=== PATIENT | female | born 1970 | race American Indian/Alaskan Native ===

== ENCOUNTER 2017-12-06 15:38 | Emergency (ER) | payer MEDICAID, OTHER ==
[2017-12-06 15:39] VITALS: BMI 48.1
[2017-12-06] MEDS ORDERED: Metoprolol Succinate 50 mg XL Tab PO STA (17:29)
--- NOTE | 2017-12-06 18:01 | ED PDOC ---
Arrival/HPI - General Chief Complaint: High Blood Pressure Time Seen by Provider: 12/06/17 16:42 Historian: Patient EM Caveat: Acuity of Condition - History of Present Illness Narrative History of Present Illness (Text): 12/06/17 17:57 Pt is a 47 yr old female with PMH of hypertension and DMII who had a random BP check done today and was told to go to the ER right away. Pt states that she does not have any complaints except some mild pressure behind her eyes. Denies chest pain shortness of breath, neck or back pain, fever, chills, nausea, vomiting, or diarrhea. Pt reports that she doesn't have a PMD and has her medications managed by this Emergency department and others. Time/Duration: < week (3 days) Symptom Onset: Sudden, Gradual Symptom Course: Unchanged Quality: Unable to Describe Severity Level: 1 Activities at Onset: Rest Context: Home Past Medical History - Provider Review Nursing Documentation Reviewed: Yes - Travel History Have you recently traveled outside [place] w/in the past 3 mons?: No - Infectious Disease Hx of Infectious Diseases: None - Tetanus Immunization Tetanus Immunization: Unknown - Cardiac Hx Cardiac Disorders: Yes Hx Hypertension: Yes Other/Comment: MIGRAINES. DIABETIC - Pulmonary Hx Respiratory Disorders: Yes (SMOKES CIGARETTES) - Neurological Hx Neurological Disorder: Yes Hx Migraine: Yes - HEENT Hx HEENT Disorder: Yes Hx Epistaxis: Yes - Renal Hx Renal Disorder: No - Endocrine/Metabolic Hx Endocrine Disorders: Yes Hx Diabetes Mellitus Type 2: Yes - Hematological/Oncological Hx Blood Disorders: No - Integumentary Hx Dermatological Disorder: Yes (LEFT FOOT LACERATION FROM FALL) - Musculoskeletal/Rheumatological Hx Musculoskeletal Disorders: No - Gastrointestinal Hx Gastrointestinal Disorders: Yes Hx Gall Bladder Disease: Yes (CHOLECYSTECTOMY) - Genitourinary/Gynecological Hx Genitourinary Disorders: No - Psychiatric Hx Psychophysiologic Disorder: No Hx Substance Use: No - Surgical History Hx Section: Yes Hx Cholecystectomy: Yes - Anesthesia Hx Anesthesia: Yes Hx Anesthesia Reactions: No Hx Malignant Hyperthermia: No - Suicidal Assessment Feels Threatened In Home Enviroment: No Family/Social History - Physician Review Nursing Documentation Reviewed: Yes Family/Social History: No Known Family HX Smoking Status: Heavy Smoker > 10 Cigarettes Daily Hx Alcohol Use: No Hx Substance Use: No Hx Substance Use Treatment: No Allergies/Home Meds Allergies/Adverse Reactions: Allergies oxycodone Allergy (Verified 12/06/17 16:18) ANAPHYLAXIS Home Medications: Home Meds Medication Instructions Recorded Confirmed Metformin HCl 500 mg PO BID 09/09/15 12/06/17 Enalapril Maleate [Vasotec] 5 mg PO DAILY 12/06/17 12/06/17 Review of Systems - Review of Systems Systems not reviewed;Unavailable: Unstable Vital Signs Constitutional: Normal Eyes: Normal ENT: Normal Respiratory: Normal Cardiovascular: Normal Gastrointestinal: Normal Genitourinary Female: Normal Musculoskeletal: Normal Skin: Normal Neurological: Normal Endocrine: Normal Hemo/Lymphatic: Normal Psychiatric: Normal Physical Exam Vital Signs Reviewed: Yes Vital Signs Temp Pulse Resp BP Pulse Ox 12/06/17 22:16 98.2 F 89 17 178/114 H 100 12/06/17 21:30 203/101 H 12/06/17 19:35 89 18 204/104 H 100 12/06/17 18:00 78 18 210/104 H 99 12/06/17 16:20 98.6 F 105 H 16 220/122 H 96 Temperature: Afebrile Blood Pressure: Hypertensive Pulse: Tachycardic Respiratory Rate: Normal Appearance: Positive for: Well-Appearing, Non-Toxic, Comfortable Pain Distress: None Mental Status: Positive for: Alert and Oriented X 3 - Systems Exam Head: Present: Atraumatic, Normocephalic Pupils: Present: PERRL Extroacular Muscles: Present: EOMI Conjunctiva: Present: Normal Mouth: Present: Moist Mucous Membranes Neck: Present: Normal Range of Motion Respiratory/Chest: Present: Clear to Auscultation, Good Air Exchange. No: Respiratory Distress, Accessory Muscle Use Cardiovascular: Present: Regular Rate and Rhythm, Normal S1, S2. No: Murmurs Abdomen: No: Tenderness, Distention, Peritoneal Signs Back: Present: Normal Inspection Upper Extremity: Present: Normal Inspection. No: Cyanosis, Edema Lower Extremity: Present: Normal Inspection, NORMAL PULSES, Normal ROM, Swelling (mild bilateral). No: Edema, CALF TENDERNESS, Daren's Sign, Tenderness Neurological: Present: GCS=15, CN II-XII Intact, Speech Normal, Motor Func Grossly Intact, Normal Sensory Function, Normal Cerebellar Funct, Gait Normal Skin: Present: Warm, Dry, Normal Color. No: Rashes Lymphatic: No: Cervical Adenopathy, Axillary Adenopathy, Inguinal Adenopathy Psychiatric: Present: Alert, Oriented x 3, Normal Insight, Normal Concentration Medical Decision Making ED Course and Treatment: 12/06/17 17:59 Impression Pt is a 47 yr old female with PMH of hypertension and DMII who had a random BP check done today and was told to go to the ER right away. Tachycardic due to anxiety, mild LE edema as a baseline Plan Labs ecg BB to lower BP Progress note 12/06/17 18:46 pt's BP lowered and remains asymptomatic; hemodynamically stable 12/06/17 20:10 BP trending down from 220/110-->204/100-->178/100 Current medication, Enalapril and Norvasc optimized at 10mg PO daily and metoprolol 25 mg PO daily x 30 Strongly encouraged pt to follow up with [facility] to have BP monitored and medications checked; counseled on diet VSS and pt ambulated well out of the ED - Lab Interpretations Lab Results: 12/06/17 18:23 12/06/17 18:23 Lab Results 12/06/17 18:23: Sodium 141, Potassium 4.3, Chloride 105, Carbon Dioxide 26, Anion Gap 14, BUN 13, Creatinine 0.8, Est GFR ( Amer) > 60, Est GFR (Non- Af Amer) > 60, Random Glucose 160 H, Calcium 8.9, Total Bilirubin 0.2, AST 24, ALT 19, Alkaline Phosphatase 66, Lactate Dehydrogenase 603, Total Creatine Kinase 110, Troponin I < 0.01, Total Protein 7.1, Albumin 3.5, Globulin 3.6, Albumin/Globulin Ratio 1.0 L 12/06/17 18:23: WBC 7.6, RBC 4.52, Hgb 9.8 L, Hct 31.8 L, MCV 70.4 L, MCH 21.7 L , MCHC 30.8 L, RDW 18.8 H, Plt Count 278, MPV 9.5 - Medication Orders Current Medication Orders: Discontinued Medications Amlodipine Besylate (Norvasc) 10 mg PO STAT STA Stop: 12/06/17 21:14 Last Admin: 12/06/17 21:30 Dose: 10 mg MAR Blood Pressure Document 12/06/17 21:30 IT (Rec: 12/06/17 21:31 IT [id number]) Blood Pressure Blood Pressure (100/60-150/90) 203/101 Metoprolol Succinate (Toprol Xl) 50 mg PO STAT STA Stop: 12/06/17 17:30 Last Admin: 12/06/17 18:00 Dose: 50 mg Disposition/Present on Arrival - Present on Arrival Any Indicators Present on Arrival: Yes History of DVT/PE: No History of Uncontrolled Diabetes: No Urinary Catheter: No History of Decub. Ulcer: No History Surgical Site Infection Following: None - Disposition Have Diagnosis and Disposition been Completed?: Yes Diagnosis: Asymptomatic hypertensive urgency Disposition: HOME/ ROUTINE Disposition Time: 22:00 Patient Plan: Discharge Condition: STABLE Discharge Instructions (ExitCare): DASH Diet, High Blood Pressure (DC) Additional Instructions: Katerine, thank you for letting us take care of you today. Your provider was MARTIN Benitez. You were treated for Hypertension. The emergency medical care you received today was directed at your acute symptoms. If you were prescribed any medication, please fill it and take as directed. It may take several days for your symptoms to resolve. Return to the Emergency Department if your symptoms worsen, do not improve, or if you have any other problems. Please take medication as directed and follow up with one of the community clinics to have your conditions managed appropriately Please contact your doctor or call one of the physicians/clinics you have been referred to that are listed on the Patient Visit Information form that is included in your discharge packet. Bring any paperwork you were given at discharge with you along with any medications you are taking to your follow up visit. Our treatment cannot replace ongoing medical care by a primary care provider (PCP) outside of the emergency department. Thank you for allowing the [email or web address] team to be part of your care today. If you had a blood, urine, or wound culture: It will take several days for the results, if any change in treatment is needed we will contact you. I Prescriptions: amLODIPine [Norvasc] 10 mg PO DAILY 30 Days #30 tab Enalapril Maleate [Vasotec] 10 mg PO DAILY 30 Days #30 tab metFORMIN [glucOPHAGE] 500 mg PO BID 30 Days #60 tab Metoprolol Tartrate 25 mg PO DAILY 30 Days #1 tablet Referrals: PCP,NO [Primary Care Provider] - [place] up with primary [facility] [place] - Follow up with primary Forms: [employer] ([place])
[2017-12-06 18:30] LABS: HEMOGLOBIN 9.8 g/dL (12.0-16.0); MEAN CELL VOLUME 70.4 fl (80.0-105.0); MEAN CORPUSCULAR HEMOGLOBIN 21.7 pg (25.0-35.0); MEAN CORPUSCULAR HGB CONC 30.8 g/dl (31.0-37.0); MEAN PLATELET VOLUME 9.5 fl (7.0-11.0); RBC 4.52 10^6/uL (3.5-6.1); RED CELL DISTRIBUTION WIDTH 18.8 % (11.5-14.5); WHITE BLOOD COUNT 7.6 10^3/ul (4.5-11.0)
[2017-12-06 18:41] LABS: ALBUMIN 3.5 g/dL (3.0-4.8); ALT/SGPT 19 U/L (7-56); AST/SGOT 24 U/L (14-36); BLOOD UREA NITROGEN 13 mg/dL (7-21); CALCIUM 8.9 mg/dL (8.4-10.5); GFR NON-AFRICAN AMERICAN > 60
[2017-12-06 18:52] LABS: TROPONIN I < 0.01 ng/mL
[2017-12-06 19:36] VITALS: PULSE 89; O2SAT 100
[2017-12-06 22:17] VITALS: BP 178/114; RESP 17; TEMP 98.2
--- NOTE | 2017-12-07 22:00 | CARD ---
APPROVED REPORT EKG Measurement Heart [id number] MS [id number] [id number] <Conclusion> Normal sinus rhythm Moderate voltage criteria for LVH, may be normal variant Nonspecific ST and T wave abnormality Abnormal ECG
== END 2017-12-06 22:17 | disposition home or self-care (01) ==
LOC: ED 15:38
DX: I16.0 Hypertensive urgency (principal); E11.9 Type 2 diabetes mellitus without complications; F17.210 Nicotine dependence, cigarettes, uncomplicated

== ENCOUNTER 2018-08-25 15:21 | Inpatient (IN) | payer MEDICAID ==
[2018-08-25 15:56] VITALS: BMI 52.4
[2018-08-25 16:48] LABS: BASO # 0.02 K/mm3 (0.0-2.0); BASO % 0.3 % (0.0-3.0); EOS # 0.1 (0.0-0.7); EOS % 1.6 % (1.5-5.0); HEMOGLOBIN 8.5 g/dL (12.0-16.0); LYMPH # 0.9 (1.2-3.4); LYMPH % 12.7 % (22.0-35.0); MEAN CELL VOLUME 68.2 fl (80.0-105.0); MEAN CORPUSCULAR HEMOGLOBIN 19.3 pg (25.0-35.0); MEAN CORPUSCULAR HGB CONC 28.3 g/dl (31.0-37.0); MEAN PLATELET VOLUME 9.5 fl (7.0-11.0); MONO # 0.4 (0.1-0.6); MONO % 5.4 % (1.0-6.0); RBC 4.4 10^6/uL (3.5-6.1); WHITE BLOOD COUNT 7.4 10^3/uL (4.5-11.0)
[2018-08-25 17:23] LABS: INR 1.3; PARTIAL THROMBOPLASTIN TIME 27.8 Seconds (26.9-38.3); PROTHROMBIN TIME 14.4 SECONDS (9.4-12.5)
[2018-08-25] MEDS ORDERED: Sodium Chloride 0.9% 1,000 ML IV STA (17:33)
--- NOTE | 2018-08-25 17:46 | ED PDOC ---
Arrival/HPI - General Chief Complaint: Chest Pain Time Seen by Provider: 08/25/18 15:37 Historian: Patient - History of Present Illness Narrative History of Present Illness (Text): 08/25/18 17:42 48-year-old female with past medical history of diabetes and hypertension, reports 2 day history of intermittent chest tightness associated with generalized weakness, headache. patient reports that she ran out of her blood pressure medication 2 days ago and has not taken any blood pressure medication today. reports that the chest tightness is midsternal, (-) constant, (+) intermittent, (-) radiation. Otherwise reports (-) diaphoresis, (-) dyspnea, (-) pleuritic component, (-) ripping or tearing quality, (-) positional component, (-) exertional component, (-) dizziness, (-) syncope, (+) nausea, (-) vomiting, (-) abdominal pain, (-) back pain, (-) calf swelling/pain, (-) neuro deficits, (-) fever, (-) URI. Reports no prior stress test in the past, no similar symptoms in the past. PMD none Past Medical History - Infectious Disease Hx of Infectious Diseases: None - Tetanus Immunization Tetanus Immunization: Unknown - Reproductive Currently : No - Cardiac Hx Cardiac Disorders: Yes Hx Hypertension: Yes Other/Comment: MIGRAINES. DIABETIC - Pulmonary Hx Respiratory Disorders: Yes (SMOKES CIGARETTES) - Neurological Hx Neurological Disorder: Yes Hx Migraine: Yes - HEENT Hx HEENT Disorder: Yes Hx Epistaxis: Yes - Renal Hx Renal Disorder: No - Endocrine/Metabolic Hx Endocrine Disorders: Yes Hx Diabetes Mellitus Type 2: Yes - Hematological/Oncological Hx Blood Disorders: No - Integumentary Hx Dermatological Disorder: Yes (LEFT FOOT LACERATION FROM FALL) - Musculoskeletal/Rheumatological Hx Musculoskeletal Disorders: No - Gastrointestinal Hx Gastrointestinal Disorders: Yes Hx Gall Bladder Disease: Yes (CHOLECYSTECTOMY) - Genitourinary/Gynecological Hx Genitourinary Disorders: No - Psychiatric Hx Psychophysiologic Disorder: No Hx Substance Use: No - Surgical History Hx Section: Yes (x1) Hx Cholecystectomy: Yes Hx Tubal Ligation: Yes - Anesthesia Hx Anesthesia: Yes Hx Anesthesia Reactions: No Hx Malignant Hyperthermia: No - Suicidal Assessment Feels Threatened In Home Enviroment: No Family/Social History Family/Social History: No Known Family HX Smoking Status: Light Smoker < 10 Cigarettes Daily Hx Alcohol Use: No Hx Substance Use: No Hx Substance Use Treatment: No Allergies/Home Meds Allergies/Adverse Reactions: Allergies oxycodone Allergy (Verified 12/06/17 16:18) ANAPHYLAXIS seafood Allergy (Uncoded 08/25/18 15:56) RASH Review of Systems - Review of Systems Constitutional: Fatigue. absent: Weight Change, Fevers ENT: absent: Sore Throat, Rhinorrhea Respiratory: absent: SOB, Cough, Sputum Cardiovascular: Chest Pain. absent: Palpitations, Edema Gastrointestinal: Nausea. absent: Abdominal Pain, Diarrhea, Vomiting Genitourinary Female: absent: Dysuria, Frequency Musculoskeletal: absent: Arthralgias, Back Pain, Neck Pain Skin: absent: Rash, Pruritis, Skin Lesions Neurological: absent: Headache, Dizziness, Focal Weakness Physical Exam Vital Signs Temp Pulse Resp BP Pulse Ox 08/25/18 16:00 98.3 F 96 H 18 188/115 H 100 Temperature: Afebrile Blood Pressure: Hypertensive Pulse: Regular Respiratory Rate: Normal Appearance: Positive for: Well-Appearing, Non-Toxic, Comfortable Pain Distress: Mild Mental Status: Positive for: Alert and Oriented X 3 - Systems Exam Head: Present: Atraumatic, Normocephalic Pupils: Present: PERRL Extroacular Muscles: Present: EOMI Conjunctiva: Present: Normal Mouth: Present: Moist Mucous Membranes Neck: Present: Normal Range of Motion. No: Meningeal Signs, Lymphadenopathy Respiratory/Chest: Present: Clear to Auscultation, Good Air Exchange. No: Respiratory Distress, Accessory Muscle Use Cardiovascular: Present: Regular Rate and Rhythm, Normal S1, S2. No: Murmurs Abdomen: No: Tenderness, Distention, Peritoneal Signs Back: Present: Normal Inspection Upper Extremity: Present: Normal Inspection. No: Cyanosis, Edema Lower Extremity: Present: Normal Inspection. No: Edema Neurological: Present: GCS=15, CN II-XII Intact, Speech Normal, Motor Func Grossly Intact, Normal Sensory Function Skin: Present: Warm, Dry, Normal Color. No: Rashes Psychiatric: Present: Alert, Oriented x 3, Normal Insight, Normal Concentration Medical Decision Making ED Course and Treatment: 08/25/18 17:47 Plan: -- Labs -- IV fluids -- Urinalysis -- EKG -- CXR -- FS -- Norvasc 10 mg PO -- Reassess and disposition 08/25/18 20:47 EKG: NSR at 92 bpm, (-) acute ST changes, as read by PA. CXR : NAD, as read by PA. Labs reviewed : hgb 8.5 (pt's hgb in the past is 9.7-9.8), trop (-). On reevaluation, patient remains awake alert and oriented 3, still reports of a headache, her BP is still elevated. Results d/w the patient. Advised that she is anemic, likely the cause of her feeling weak. Lisinopril 10 mg PO and tylenol 975 mg PO given. Considering persistent high bp and patient's headache, CT head ordered. Patient advised that she will need to be kept in the hospital for further observation, which she agrees with. Case d/w medical director/head team physician and Dr. Ellsworth, who agree with observation under the hospitalist service. - Lab Interpretations Lab Results: PT 14.4 SECONDS (9.4-12.5) H 08/25/18 16:45 INR 1.30 08/25/18 16:45 APTT 27.8 Seconds (26.9-38.3) 08/25/18 16:45 - Medication Orders Current Medication Orders: Aspirin (Aspirin) 325 mg PO STAT STA Stop: 08/25/18 17:39 Sodium Chloride (Sodium Chloride 0.9%) 1,000 mls @ 500 mls/hr IV .Q2H STA Stop: 08/25/18 19:32 Discontinued Medications Amlodipine Besylate (Norvasc) 10 mg PO STAT STA Stop: 08/25/18 17:34 - PA / [employer]INE[employer] / Resident Statement MD/DO has reviewed & agrees with the documentation as recorded. Disposition/Present on Arrival - Present on Arrival Any Indicators Present on Arrival: No History of DVT/PE: No History of Uncontrolled Diabetes: No Urinary Catheter: No History of Decub. Ulcer: No History Surgical Site Infection Following: None - Disposition Have Diagnosis and Disposition been Completed?: Yes Diagnosis: Hypertension, Chest pain Disposition: HOSPITALIZED Disposition Time: 20:45 Patient Plan: Observation Patient Problems: Current Active Problems Problem Status Onset Chest pain Acute Hypertension Acute Condition: FAIR Discharge Instructions (ExitCare): Chest Pain (ED) Forms: [employer] ([place])
[2018-08-25 18:54] LABS: ALB/GLOB RATIO 0.9 (1.1-1.8); ALBUMIN 3.6 g/dL (3.0-4.8); ALT/SGPT 20 U/L (7-56); AST/SGOT 20 U/L (14-36); BLOOD UREA NITROGEN 14 mg/dL (7-21); CALCIUM 8.8 mg/dL (8.4-10.5); GFR NON-AFRICAN AMERICAN > 60
--- NOTE | 2018-08-25 18:59 | RAD ---
Date of service: 08/25/2018 HISTORY: CP COMPARISON: 09/09/2015 FINDINGS: LUNGS: No active pulmonary disease. PLEURA: No significant pleural effusion identified, no pneumothorax apparent. CARDIOVASCULAR: No atherosclerotic calcification present Cardiomegaly. No evidence of acute, significant cardiovascular disease. OSSEOUS STRUCTURES: No significant abnormalities. VISUALIZED UPPER ABDOMEN: Normal. OTHER FINDINGS: None. IMPRESSION: No active disease. No significant interval change compared to the prior examination(s).
[2018-08-25 19:13] LABS: TROPONIN I < 0.01 ng/mL
--- NOTE | 2018-08-25 20:10 | CARD ---
APPROVED REPORT Date of service: 08/25/2018 EKG Measurement Heart [id number] 156P58 [id number] <Conclusion> Normal sinus rhythm Left ventricular hypertrophy with repolarization abnormality Abnormal ECG
--- NOTE | 2018-08-25 20:48 | CP.PCM.HP ---
History of Present Illness - History of Present Illness History of Present Illness: Nelson Greer, PGY1 H&P for Dr. Ellsworth cc: "chest pain, headache, weakness" Patient is a 48 y/o F with PMHx DM and HTN who presented to the ED for intermitted chest pain with associated headache and weakness. In the ED, Vitals: Temp 98.3, HR 96, RR 18, BP 188/115, SaO2 100%. Medical team was consulted for evaluation. Patient said that she ran out of her blood pressure medications about 2 days ago. Since then, she has been having some dull chest pain. She also endorsed migraine-like headache and some generalized weakness. She denies l ightheadedness, dizziness, diaphoresis, fever, chills, n/v/d, numbness/tingling of the extremities. No sick contacts and no recent travel history. Patient said she had these symptoms when she was at rest and not related to exertion. She does not follow up with a PMD or a Insurance Follow Up Representative. Patient has not had any previous stress tests or echocardiograms. A full 12 point ROS was conducted and unremarkable except as stated above. PMD: none PMHx: DM, HTN PSHx: cholecystectomy, x1 Meds: see MAR Allergies: oxycodone, seafood FamHx: non-contributory SocialHx: cigarette smoker, denies EtOH, denies substance abuse Present on Admission - Present on Admission Any Indicators Present on Admission: No Review of Systems - Review of Systems All systems: reviewed and no additional remarkable complaints except (as per HPI) Past Patient History - Infectious Disease Hx of Infectious Diseases: None - Tetanus Immunizations Tetanus Immunization: Unknown - Past Social History Smoking Status: Light Smoker < 10 Cigarettes Daily - CARDIAC Hx Cardiac Disorders: Yes Hx Hypertension: Yes Other/Comment: MIGRAINES. DIABETIC - PULMONARY Hx Respiratory Disorders: Yes (SMOKES CIGARETTES) - NEUROLOGICAL Hx Neurological Disorder: Yes Hx Migraine: Yes - HEENT Hx HEENT Problems: Yes Hx Epistaxis: Yes - RENAL Hx Chronic Kidney Disease: No - ENDOCRINE/METABOLIC Hx Endocrine Disorders: Yes Hx Diabetes Mellitus Type 2: Yes - HEMATOLOGICAL/ONCOLOGICAL Hx Blood Disorders: No - INTEGUMENTARY Hx Dermatological Problems: Yes (LEFT FOOT LACERATION FROM FALL) - MUSCULOSKELETAL/RHEUMATOLOGICAL Hx Musculoskeletal Disorders: No - GASTROINTESTINAL Hx Gastrointestinal Disorders: Yes Hx Gall Bladder Disease: Yes (CHOLECYSTECTOMY) - GENITOURINARY/GYNECOLOGICAL Hx Genitourinary Disorders: No - PSYCHIATRIC Hx Psychophysiologic Disorder: No Hx Substance Use: No - SURGICAL HISTORY Hx Section: Yes (x1) Hx Cholecystectomy: Yes Hx Tubal Ligation: Yes - ANESTHESIA Hx Anesthesia: Yes Hx Anesthesia Reactions: No Hx Malignant Hyperthermia: No Meds Allergies/Adverse Reactions: Allergies Allergy/AdvReac Type Severity Reaction Status Date / Time oxycodone Allergy ANAPHYLAXIS Verified 12/06/17 16:18 seafood Allergy RASH Uncoded 08/25/18 15:56 Physical Exam - Constitutional Appears: No Acute Distress - Head Exam Head Exam: ATRAUMATIC, NORMAL INSPECTION, NORMOCEPHALIC - Eye Exam Eye Exam: EOMI, Normal appearance Pupil Exam: NORMAL ACCOMODATION - ENT Exam ENT Exam: Mucous Membranes Moist, Normal Exam - Respiratory Exam Respiratory Exam: Clear to Auscultation Bilateral, NORMAL BREATHING PATTERN. absent: Chest Wall Tenderness, Rales, Rhonchi, Wheezes - Cardiovascular Exam Cardiovascular Exam: RRR, +S1, +S2 - GI/Abdominal Exam GI & Abdominal Exam: Normal Bowel Sounds, Soft. absent: Firm, Guarding, Rebound, Rigid, Tenderness Additional comments: Obese abdomen - Extremities Exam Extremities exam: Positive for: normal capillary refill, normal inspection, pe gurwinder pulses present. Negative for: calf tenderness, joint swelling, pedal edema, tenderness - Neurological Exam Neurological exam: Alert, CN II-XII Intact, Normal Gait, Oriented x3, Reflexes Normal - Psychiatric Exam Psychiatric exam: Normal Affect, Normal Mood - Skin Skin Exam: Dry, Intact, Normal Color, Warm Results - Vital Signs Recent Vital Signs: Last Vital Signs Temp 98.1 F 08/25/18 18:00 Pulse 85 08/25/18 20:20 Resp 19 08/25/18 19:20 BP 237/102 H 08/25/18 20:20 Pulse Ox 100 08/25/18 19:20 - Labs Result Diagrams: 08/25/18 16:45 08/25/18 17:35 Labs: Laboratory Results - last 24 hr 08/25/18 08/25/18 08/25/18 16:45 16:45 17:35 WBC 7.4 RBC 4.40 Hgb 8.5 L Hct 30.0 L MCV 68.2 L MCH 19.3 L MCHC 28.3 L RDW 19.0 H Plt Count 366 MPV 9.5 Neut % (Auto) 80.0 H Lymph % (Auto) 12.7 L [place] % (Auto) 5.4 Eos % (Auto) 1.6 Baso % (Auto) 0.3 Lymph # (Auto) 0.9 L [place] # (Auto) 0.4 Eos # (Auto) 0.1 Baso # (Auto) 0.02 Absolute Neuts (auto) 5.88 PT 14.4 H INR 1.30 APTT 27.8 Sodium 140 Potassium 3.7 Chloride 107 Carbon Dioxide 26 Anion Gap 11 BUN 14 Creatinine 0.9 Est GFR ( Amer) > 60 Est GFR (Non-Af Amer) > 60 POC Glucose (mg/dL) Random Glucose 116 H Calcium 8.8 Total Bilirubin 0.3 AST 20 ALT 20 Alkaline Phosphatase 72 Troponin I < 0.01 Total Protein 7.4 Albumin 3.6 Globulin 3.8 Albumin/Globulin Ratio 0.9 L 08/25/18 19:52 WBC RBC Hgb Hct MCV MCH MCHC RDW Plt Count MPV Neut % (Auto) Lymph % (Auto) [place] % (Auto) Eos % (Auto) Baso % (Auto) Lymph # (Auto) [place] # (Auto) Eos # (Auto) Baso # (Auto) Absolute Neuts (auto) PT INR APTT Sodium Potassium Chloride Carbon Dioxide Anion Gap BUN Creatinine Est GFR ( Amer) Est GFR (Non-Af Amer) POC Glucose (mg/dL) 110 Random Glucose Calcium Total Bilirubin AST ALT Alkaline Phosphatase Troponin I Total Protein Albumin Globulin Albumin/Globulin Ratio Assessment & Plan - Assessment and Plan (Free Text) Assessment: Patient is a 48 y/o F with PMHx DM and HTN who presented to the ED for intermitted chest pain with associated headache and weakness. Patient will be admitted for HTN urgency 2/2 medication non-compliance and chest pain 2/2 HTN. Plan: HTN Urgency 2/2 Medication Non-compliance - hydralazine 10mg IVP q4 prn with holding parameters; max 2 doses to avoid rapid hypotension - c/w home med norvasc 10mg daily - c/w home med Lisinopril 10mg daily - c/w home med metoprolol 25 mg daily - monitor vital signs q4 - ED ordered CT Head, f/u results - Neurological exam normal - Urine drug screen ordered - Given fluids in the ED, gave x1 dose Lasix 40mg IVP - Hx of HTN Chest Pain 2/2 HTN - initial trop negative x1, trend trops q6 - acetaminophen/motrin for pain - EKG: NSR at 92 bpm. LVH present. No acute ST or T wave changes. - CXR: no active cardiopulmonary disease Anemia - likely Iron Deficiency - iron studies ordered - iron, ferritin, TIBC, retic, transferrin - Hgb was 8.5 (baseline 9.8) - cbc in morning Hx DM - ISS - Accuchecks Morbid Obesity - Counseled on appropriate diet and exercise DVT ppx: heparin sc GI ppx: ptx Diet: HHD Dispo: patient will be observed on remote tele. Continue to monitor BP. Case was discussed and reviewed with Attending Physician, Dr. Ellsworth
[2018-08-25 22:37] LABS: IRON 17 ug/dL (45-180)
[2018-08-25 22:46] LABS: % IRON SATURATION 5 % (20-55); TOTAL IRON BINDING CAPACITY 371 ug/dL (265-497)
[2018-08-26] MEDS ORDERED: DiphenhydrAMINE 50 mg/ml Inj IVP STA (03:33)
[2018-08-26] MEDS: Pantoprazole 40 mg EC Tab PO SCH (06:04)
[2018-08-26 06:24] LABS: HEMOGLOBIN 7.6 g/dL (12.0-16.0); MEAN CELL VOLUME 67.4 fl (80.0-105.0); MEAN CORPUSCULAR HEMOGLOBIN 19.2 pg (25.0-35.0); MEAN CORPUSCULAR HGB CONC 28.5 g/dl (31.0-37.0); MEAN PLATELET VOLUME 9.2 fl (7.0-11.0); RBC 3.96 10^6/uL (3.5-6.1); RED CELL DISTRIBUTION WIDTH 18.9 % (11.5-14.5); WHITE BLOOD COUNT 5.2 10^3/uL (4.5-11.0)
[2018-08-26 07:39] LABS: ALB/GLOB RATIO 0.9 (1.1-1.8); ALBUMIN 3.2 g/dL (3.0-4.8); ALT/SGPT 21 U/L (7-56); AST/SGOT 15 U/L (14-36); BLOOD UREA NITROGEN 12 mg/dL (7-21); CALCIUM 8.8 mg/dL (8.4-10.5); GFR NON-AFRICAN AMERICAN > 60
[2018-08-26] MEDS: Insulin Lispro (humaLOG) LOW Coverage SC SCH ×4 (07:56→21:40)
[2018-08-26] MEDS ORDERED: Potassium Chloride 40 mEq/30 ml LIQ UD PO ONE (08:50)
[2018-08-26] MEDS ORDERED: Potassium Chloride 20 mEq ER Tab PO ONE (09:03)
--- NOTE | 2018-08-26 11:55 | CT ---
Date of service: 08/26/2018 PROCEDURE: CT HEAD WITHOUT CONTRAST. HISTORY: Headache COMPARISON: Comparison made with prior CT scan of the brain dated 07/30/2016. TECHNIQUE: Axial computed tomography images were obtained through the head/brain without intravenous contrast. Radiation dose: Total exam DLP = 952.13 mGy-cm. This CT exam was performed using one or more of the following dose reduction techniques: Automated exposure control, adjustment of the mA and/or kV according to patient size, and/or use of iterative reconstruction technique. FINDINGS: HEMORRHAGE: No acute parenchymal, subarachnoid or extra-axial hemorrhage. Hemorrhage. BRAIN: No mass effect or edema. No atrophy or chronic microvascular ischemic changes. The. Questionable low-lying cerebellar tonsils. Follow-up MRI of the cervical spine could be performed for further evaluation. VENTRICLES: Unremarkable. No hydrocephalus. CALVARIUM: Unremarkable. PARANASAL SINUSES: Unremarkable as visualized. No significant inflammatory changes. MASTOID AIR CELLS: Unremarkable as visualized. No inflammatory changes. OTHER FINDINGS: Findings consistent with bilateral exophthalmos. Clinical correlation with ophthalmologic consultation recommended.. IMPRESSION: No acute intracranial hemorrhage. Findings consistent with bilateral exophthalmos.. There appears to be mildly low lying cerebellar tonsils.. Consider follow-up MRI of the cervical spine
--- NOTE | 2018-08-26 22:43 | CP.PCM.PN ---
<Marcus Barry Channing - Last Filed: 08/27/18 17:38> Subjective - Date & Time of Evaluation Date of Evaluation: 08/26/18 Time of Evaluation: 11:15 - Subjective Subjective: Medicine progress note - Jhonny, PGY - 2 Patient seen and examined at bedside. Patient's hemoglobin dropped to 7.6 this am, reported several ml's of fluid given in ED. Patient denies any new complaints and states that her headache is better as well as her chest pain. No further complaints at this time. Objective - Vital Signs/Intake and Output Vital Signs (last 24 hours): Temp Pulse Resp BP Pulse Ox 98.8 F 86 18 151/83 H 98 08/26/18 18:00 08/26/18 21:00 08/26/18 18:00 08/26/18 21:00 08/26/18 06:00 - Medications Medications: Current Medications Acetaminophen (Tylenol 325mg Tab) 650 mg PO Q6H PRN PRN Reason: Pain, moderate (4-7) Amlodipine Besylate (Norvasc) 10 mg PO DAILY [facility] Last Admin: 08/26/18 09:29 Dose: 10 mg Heparin Sodium (Porcine) (Heparin) 5,000 units SC Q12 [facility]; Protocol Last Admin: 08/26/18 22:03 Dose: 5,000 units Hydralazine HCl (Apresoline) 10 mg PO Q6 PRN PRN Reason: Systolic Blood Pressure Last Admin: 08/26/18 17:24 Dose: 10 mg Ibuprofen (Motrin Tab) 400 mg PO Q6H PRN PRN Reason: Headache Last Admin: 08/26/18 22:03 Dose: 400 mg Insulin Human Lispro (Humalog Low) 0 units SC ACHS [facility]; Protocol Last Admin: 08/26/18 21:40 Dose: Not Given Lisinopril (Zestril) 10 mg PO DAILY [facility] Last Admin: 08/26/18 09:30 Dose: 10 mg Metoprolol Tartrate (Lopressor) 25 mg PO DAILY [facility] Last Admin: 08/26/18 09:31 Dose: 25 mg Pantoprazole Sodium (Protonix Ec Tab) 40 mg PO 0600 [facility] Last Admin: 08/26/18 06:04 Dose: 40 mg - Labs Labs: 08/26/18 06:00 08/26/18 06:00 PT 14.4 SECONDS (9.4-12.5) H 08/25/18 16:45 INR 1.30 08/25/18 16:45 APTT 27.8 Seconds (26.9-38.3) 08/25/18 16:45 - Constitutional Appears: Well - Head Exam Head Exam: ATRAUMATIC, NORMAL INSPECTION, NORMOCEPHALIC - Eye Exam Eye Exam: EOMI, Normal appearance, PERRL Pupil Exam: NORMAL ACCOMODATION, PERRL - ENT Exam ENT Exam: Mucous Membranes Moist, Normal Exam - Neck Exam Neck Exam: Full ROM, Normal Inspection. absent: Lymphadenopathy - Respiratory Exam Respiratory Exam: Clear to Ausculation Bilateral, NORMAL BREATHING PATTERN - Cardiovascular Exam Cardiovascular Exam: REGULAR RHYTHM, +S1, +S2. absent: Murmur - GI/Abdominal Exam GI & Abdominal Exam: Soft, Normal Bowel Sounds. absent: Tenderness - Extremities Exam Extremities Exam: Full ROM, Normal Capillary Refill, Normal Inspection. absent: Joint Swelling, Pedal Edema - Back Exam Back Exam: NORMAL INSPECTION - Neurological Exam Neurological Exam: Alert, Awake, CN II-XII Intact, Normal Gait, Oriented x3 - Psychiatric Exam Psychiatric exam: Normal Affect, Normal Mood - Skin Skin Exam: Dry, Intact, Normal Color, Warm Assessment and Plan - Assessment and Plan (Free Text) Assessment: Patient is a 48 y/o F with PMHx DM and HTN who presented to the ED for intermitted chest pain with associated headache and weakness. Patient will be admitted for HTN urgency 2/2 medication non-compliance and chest pain 2/2 HTN. Plan: HTN Urgency 2/2 Medication Non-compliance - hydralazine 10mg IVP q4 prn with holding parameters; max 2 doses to avoid rapid hypotension - c/w home med norvasc 10mg daily, Lisinopril 10mg daily, metoprolol 25 mg daily - monitor vital signs q4 - Cardiology consult: Dr. Lyon Chest Pain 2/2 HTN - ACS ruled out with 3 negative tropes - acetaminophen/motrin for pain - Cardio consult: Dr. Lyon Anemia - likely Iron Deficiency - iron studies ordered - iron, ferritin, TIBC, retic, transferrin; added stool occult - Hgb was 8.5 (baseline 9.8) - could have been dilutional, 2/2 amount of fluid given in ED - cbc in morning Hx DM - ISS - Accuchecks Morbid Obesity - Counseled on appropriate diet and exercise DVT ppx: heparin sc GI ppx: ptx Diet: HHD Dispo: patient will be observed on remote tele. Continue to monitor BP. <Selene Albrecht R - Last Filed: 08/28/18 17:42> Objective - Vital Signs/Intake and Output Vital Signs (last 24 hours): Temp Pulse Resp BP Pulse Ox 98 F 87 20 148/74 99 08/28/18 05:58 08/28/18 16:00 08/28/18 05:58 08/28/18 16:00 08/28/18 16:00 Intake and Output: 08/28/18 08/28/18 06:59 18:59 Intake Total 560 Balance 560 - Medications Medications: Current Medications Acetaminophen (Tylenol 325mg Tab) 650 mg PO Q6H PRN PRN Reason: Pain, moderate (4-7) Amlodipine Besylate (Norvasc) 10 mg PO DAILY [facility] Last Admin: 08/28/18 12:15 Dose: 10 mg Clonidine HCl (Catapres) 0.1 mg PO TID PRN PRN Reason: Systolic Blood Pressure Docusate Sodium (Colace) 100 mg PO DAILY [facility] Last Admin: 08/28/18 12:15 Dose: 100 mg Ferrous Sulfate (Feosol) 324 mg PO TID [facility] Last Admin: 08/28/18 13:21 Dose: 324 mg Heparin Sodium (Porcine) (Heparin) 5,000 units SC Q12 [facility]; Protocol Last Admin: 08/28/18 12:15 Dose: 5,000 units Hydralazine HCl (Apresoline) 10 mg PO Q6 PRN PRN Reason: Systolic Blood Pressure Last Admin: 08/28/18 05:41 Dose: 10 mg Hydrochlorothiazide (Hydrodiuril) 25 mg PO DAILY [facility] Ibuprofen (Motrin Tab) 400 mg PO Q6H PRN PRN Reason: Headache Last Admin: 08/26/18 22:03 Dose: 400 mg Insulin Human Lispro (Humalog Low) [address] [facility]; Protocol Last Admin: 08/28/18 16:59 Dose: Not Given Lisinopril (Zestril) 20 mg PO DAILY [facility] Metoprolol Tartrate (Lopressor) 25 mg PO BID [facility] Pantoprazole Sodium (Protonix Ec Tab) 40 mg PO 0600 [facility] Last Admin: 08/28/18 05:41 Dose: 40 mg - Labs Labs: 08/28/18 07:10 08/28/18 07:10 PT 14.4 SECONDS (9.4-12.5) H 08/25/18 16:45 INR 1.30 08/25/18 16:45 APTT 27.8 Seconds (26.9-38.3) 08/25/18 16:45 Attending/Attestation - Attestation I have personally seen and examined this patient.: Yes I have fully participated in the care of the patient.: Yes I have reviewed all pertinent clinical information, including history, physical exam and plan: Yes Notes (Text): Patient seen and examined by me with resident at 9:15AM on 08/26/18. Case including HPI, physical exam, and assessment and plan discussed with resident. Agree with above with following additions/corrections. Patient is a 48 year old female with past medical history significant for DM2 and hypertension that presented to the emergency room for intermittent chest pain, headache, and weakness. Patient states she feels a little better. States headache has improved. Still with some chest pain that is in the middle of the chest. Feels like a pressure. No radiation of the pain. No palpitations. Patient states also has some shortness of breath with ambulation. No change in vision. No dizziness or lightheadedness. No nausea, vomiting, or abdominal pain. No dysuria. No diarrhea or constipation. General: Awake and alert lying in bed in no acute distress HEENT: Normocephalic, atraumatic. Extraocular muscles intact, pupils equal and reactive, no scleral icterus. Oropharynx is pink and moist. No pharyngeal erythema or exudate appreciated. Neck is supple. Cardiovascular: Regular rhythm. Normal S1 and S2. No murmurs, rubs, or gallops appreciated Pulmonary: Normal respiratory effort. No rhonchi, rales, or wheezing appreciated. Gastrointestinal: Soft, nondistended. Nontender. Positive bowel sounds all 4 quadrants. No guarding. Morbid obesity. Musculoskeletal: Moves all extremities. No calf tenderness. No edema. Central nervous system: AAOx3. Dermatologic: Skin warm and dry. Assessment and plan: Patient is a 48 year old female with past medical history significant for DM2 and hypertension that presented to the emergency room for intermittent chest pain, headache, and weakness. 1. Chest pain. Dyspnea. Cardiology consulted, follow up recommendations. Continue metoprolol. Troponins < 0.01. Monitor on telemetry 2. Essential hypertension, uncontrolled. Hypertensive urgency resolved. Continue metoprolol, lisinopril, and Norvasc. Head CT per radiologist showed no acute intracranial findings. 3. Anemia. Follow up iron studies. Follow up repeat CBC in AM. Patient denies any bleeding. 4. Morbid obesity. Counseled on diet and exercise. 5. DVT prophylaxis. Heparin. 6. Patient is a full code. Case discussed in detail with patient regarding current diagnosis and treatment plan. All questions answered.
[2018-08-26] MEDS ORDERED: DiphenhydrAMINE 50 mg/ml Inj IVP ONE (23:52)
[2018-08-27] MEDS: Pantoprazole 40 mg EC Tab PO SCH (06:21)
[2018-08-27 07:11] LABS: HEMOGLOBIN 7.7 g/dL (12.0-16.0); MEAN CELL VOLUME 67.3 fl (80.0-105.0); MEAN CORPUSCULAR HEMOGLOBIN 19.3 pg (25.0-35.0); MEAN CORPUSCULAR HGB CONC 28.6 g/dl (31.0-37.0); MEAN PLATELET VOLUME 9.3 fl (7.0-11.0); RED CELL DISTRIBUTION WIDTH 18.9 % (11.5-14.5); WHITE BLOOD COUNT 5.2 10^3/uL (4.5-11.0)
[2018-08-27 07:42] LABS: ALB/GLOB RATIO 0.9 (1.1-1.8); ALBUMIN 3.5 g/dL (3.0-4.8); ALT/SGPT 14 U/L (7-56); AST/SGOT 17 U/L (14-36); BLOOD UREA NITROGEN 16 mg/dL (7-21); CALCIUM 8.6 mg/dL (8.4-10.5); GFR NON-AFRICAN AMERICAN > 60
[2018-08-27] MEDS: Insulin Lispro (humaLOG) LOW Coverage SC SCH ×4 (07:44→21:13)
--- NOTE | 2018-08-27 13:36 | CP.PCM.PN ---
<Prasanth Ortze - Last Filed: 08/27/18 15:18> Subjective - Date & Time of Evaluation Date of Evaluation: 08/27/18 Time of Evaluation: 08:30 - Subjective Subjective: Patient seen and examined at bedside in no acute distress. Patient states this is the first time she is aware she has anemia. Family at bedside states anemia runs in the family (patient's sister and maternal grandmother). Patient states she still had chest pain at times and is short of breath from time to time. Patient signed blood transfusion consent and is aware of plan to stress test. Objective - Vital Signs/Intake and Output Vital Signs (last 24 hours): Temp Pulse Resp BP Pulse Ox 98.1 F 75 18 169/91 H 100 08/27/18 12:00 08/27/18 12:00 08/27/18 12:00 08/27/18 12:00 08/27/18 06:00 Intake and Output: 08/27/18 08/27/18 06:59 18:59 Intake Total 240 Balance 240 - Medications Medications: Current Medications Acetaminophen (Tylenol 325mg Tab) 650 mg PO Q6H PRN PRN Reason: Pain, moderate (4-7) Amlodipine Besylate (Norvasc) 10 mg PO DAILY [facility] Last Admin: 08/27/18 09:56 Dose: 10 mg Heparin Sodium (Porcine) (Heparin) 5,000 units SC Q12 [facility]; Protocol Last Admin: 08/27/18 09:55 Dose: 5,000 units Hydralazine HCl (Apresoline) 10 mg PO Q6 PRN PRN Reason: Systolic Blood Pressure Last Admin: 08/26/18 17:24 Dose: 10 mg Ibuprofen (Motrin Tab) 400 mg PO Q6H PRN PRN Reason: Headache Last Admin: 08/26/18 22:03 Dose: 400 mg Insulin Human Lispro (Humalog Low) 0 units SC ACHS [facility]; Protocol Last Admin: 08/27/18 12:26 Dose: Not Given Lisinopril (Zestril) 10 mg PO DAILY [facility] Last Admin: 08/27/18 09:56 Dose: 10 mg Metoprolol Tartrate (Lopressor) 25 mg PO DAILY [facility] Last Admin: 08/27/18 09:56 Dose: 25 mg Pantoprazole Sodium (Protonix Ec Tab) 40 mg PO 0600 [facility] Last Admin: 08/27/18 06:21 Dose: 40 mg - Labs Labs: 08/27/18 05:00 08/27/18 05:00 PT 14.4 SECONDS (9.4-12.5) H 08/25/18 16:45 INR 1.30 08/25/18 16:45 APTT 27.8 Seconds (26.9-38.3) 08/25/18 16:45 Assessment and Plan - Assessment and Plan (Free Text) Assessment: Patient is a 48 y/o F with PMHx DM and HTN who presented to the ED for intermitted chest pain with associated headache and weakness. Patient will be admitted for HTN urgency 2/2 medication non-compliance and chest pain 2/2 HTN. Plan: HTN Urgency 2/2 Medication Non-compliance - hydralazine 10mg IVP q6 prn with holding parameters; max 2 doses to avoid rapid hypotension - Continue home med norvasc 10mg daily - Continue home med Lisinopril 10mg daily - Continue home med metoprolol 25 mg daily - continue to monitor vital signs q4 - Patient states she uses [facility] pharmacy, must verify medications with pharmacy when open tomorrow Chest Pain 2/2 HTN - Patient to go for stress testing once H/H stable Anemia - likely Iron Deficiency - Iron studies ordered reveal low iron, TIBC within normal limits - Hgb was 7.7; will transfuse 1 unit PRBC and start daily iron w colace - Repeat CBC after blood transfusion Hx DM - ISS-Low - Accuchecks Morbid Obesity - Counseled on appropriate diet and exercise DVT ppx: heparin sc GI ppx: ptx Diet: HHD Case was discussed and reviewed with Attending Physician Dr. Albrecht <Seleen Albrecht - Last Filed: 08/28/18 17:47> Objective - Vital Signs/Intake and Output Vital Signs (last 24 hours): Temp Pulse Resp BP Pulse Ox 98 F 87 20 148/74 99 08/28/18 05:58 08/28/18 16:00 08/28/18 05:58 08/28/18 16:00 08/28/18 16:00 Intake and Output: 08/28/18 08/28/18 06:59 18:59 Intake Total 560 Balance 560 - Medications Medications: Current Medications Acetaminophen (Tylenol 325mg Tab) 650 mg PO Q6H PRN PRN Reason: Pain, moderate (4-7) Amlodipine Besylate (Norvasc) 10 mg PO DAILY [facility] Last Admin: 08/28/18 12:15 Dose: 10 mg Clonidine HCl (Catapres) 0.1 mg PO TID PRN PRN Reason: Systolic Blood Pressure Docusate Sodium (Colace) 100 mg PO DAILY [facility] Last Admin: 08/28/18 12:15 Dose: 100 mg Ferrous Sulfate (Feosol) 324 mg PO TID [facility] Last Admin: 08/28/18 13:21 Dose: 324 mg Heparin Sodium (Porcine) (Heparin) 5,000 units SC Q12 [facility]; Protocol Last Admin: 08/28/18 12:15 Dose: 5,000 units Hydralazine HCl (Apresoline) 10 mg PO Q6 PRN PRN Reason: Systolic Blood Pressure Last Admin: 08/28/18 05:41 Dose: 10 mg Hydrochlorothiazide (Hydrodiuril) 25 mg PO DAILY [facility] Ibuprofen (Motrin Tab) 400 mg PO Q6H PRN PRN Reason: Headache Last Admin: 08/26/18 22:03 Dose: 400 mg Insulin Human Lispro (Humalog Low) 0 units SC ACHS [facility]; Protocol Last Admin: 08/28/18 16:59 Dose: Not Given Lisinopril (Zestril) 20 mg PO DAILY [facility] Metoprolol Tartrate (Lopressor) 25 mg PO BID [facility] Pantoprazole Sodium (Protonix Ec Tab) 40 mg PO 0600 [facility] Last Admin: 08/28/18 05:41 Dose: 40 mg - Labs Labs: 08/28/18 07:10 08/28/18 07:10 PT 14.4 SECONDS (9.4-12.5) H 08/25/18 16:45 INR 1.30 08/25/18 16:45 APTT 27.8 Seconds (26.9-38.3) 08/25/18 16:45 Attending/Attestation - Attestation I have personally seen and examined this patient.: Yes I have fully participated in the care of the patient.: Yes I have reviewed all pertinent clinical information, including history, physical exam and plan: Yes Notes (Text): Patient seen and examined by me with resident at 9AM on 08/27/18. Case including HPI, physical exam, and assessment and plan discussed with resident. Agree with above with following additions/corrections. Patient is a 48 year old female with past medical history significant for DM2 a nd hypertension that presented to the emergency room for intermittent chest pain, headache, and weakness. Patient states she feels ok. Still with shortness of breath with ambulating and with some weakness. No headache today. Still with intermittent chest pain. No palpitations. No change in vision. No dizziness or lightheadedness. No nausea, vomiting, or abdominal pain. No dysuria. No diarrhea or constipation. General: Awake and alert lying in bed in no acute distress HEENT: Normocephalic, atraumatic. Extraocular muscles intact, pupils equal and reactive, no scleral icterus. Oropharynx is pink and moist. No pharyngeal erythema or exudate appreciated. Neck is supple. Cardiovascular: Regular rhythm. Normal S1 and S2. No murmurs, rubs, or gallops appreciated Pulmonary: Normal respiratory effort. No rhonchi, rales, or wheezing appreciated. Gastrointestinal: Soft, nondistended. Nontender. Positive bowel sounds all 4 quadrants. No guarding. Morbid obesity. Musculoskeletal: Moves all extremities. No calf tenderness. No edema. Central nervous system: AAOx3. Dermatologic: Skin warm and dry. Assessment and plan: Patient is a 48 year old female with past medical history significant for DM2 and hypertension that presented to the emergency room for intermittent chest pain, headache, and weakness. 1. Chest pain. Dyspnea. Cardiology consulted, follow up recommendations. Continue metoprolol. Troponins < 0.01. Follow up 2D echo. For possible stress test tomorrow. Monitor on telemetry 2. Essential hypertension, uncontrolled. Hypertensive urgency resolved. Continue metoprolol, lisinopril, and Norvasc. Head CT per radiologist showed no acute intracranial findings. 3. Symptomatic Anemia with shortness of breath and fatigue. Also with iron deficiency. Will start on oral iron. Transfuse 1unit PRBC. Follow up repeat CBC. 4. Morbid obesity. Counseled on diet and exercise. 5. DVT prophylaxis. Heparin. 6. Patient is a full code. Case discussed in detail with patient regarding current diagnosis and treatment plan. All questions answered.
--- NOTE | 2018-08-27 13:53 | CON ---
DATE: 08/27/2018 CARDIOLOGY CONSULTATION HISTORY: The patient is a 48-year-old woman, who presents with substernal pressure. PAST MEDICAL HISTORY: The patient's past medical history includes diabetes mellitus, hypertension, morbid obesity. She is an active smoker. No previous cardiac history is noted. She has been noncompliant with followup. Currently, the patient is chest pain free at rest. No shortness of breath is noted. SOCIAL HISTORY: She is an active smoker. REVIEW OF SYSTEMS: Fourteen-point review of systems is reviewed in detail. No additional symptoms from above. PHYSICAL EXAMINATION: VITAL SIGNS: Blood pressure 149/79, heart rate is in the 80s. NECK: Negative JVD. LUNGS: Without rales. CARDIAC: Heart rate S1, S2. EXTREMITIES: Without edema. LABORATORY DATA: EKG shows normal sinus rhythm with nonspecific ST-T changes. Hemoglobin is down to 7.7. Chemistries, BUN and creatinine are unremarkable. The glucose is 113. Troponins are negative x3. IMPRESSION: 1. Chest pressure. 2. Diabetes mellitus. 3. Hypertension. 4. Nicotine addiction. 5. Morbid obesity. 6. Marked anemia. PLAN: Given these findings, the patient will need to have coronary artery disease ruled out. There is no evidence for acute coronary syndrome. However, we need to wait for evaluation of her anemia before considering a stress test. In the morning, we will transfer the care back to Dr. Escobar. Kuldeep Brennan MD
[2018-08-27 19:39] LABS: HEMOGLOBIN 8.8 g/dL (12.0-16.0); MEAN CELL VOLUME 68.8 fl (80.0-105.0); MEAN CORPUSCULAR HEMOGLOBIN 20.3 pg (25.0-35.0); MEAN CORPUSCULAR HGB CONC 29.5 g/dl (31.0-37.0); MEAN PLATELET VOLUME 8.6 fl (7.0-11.0); RBC 4.33 10^6/uL (3.5-6.1); RED CELL DISTRIBUTION WIDTH 19.2 % (11.5-14.5); WHITE BLOOD COUNT 6.5 10^3/uL (4.5-11.0)
[2018-08-28] MEDS: Pantoprazole 40 mg EC Tab PO SCH (05:41)
[2018-08-28 07:22] LABS: HEMOGLOBIN 8.7 g/dL (12.0-16.0); MEAN CELL VOLUME 68.4 fl (80.0-105.0); MEAN CORPUSCULAR HEMOGLOBIN 19.9 pg (25.0-35.0); MEAN CORPUSCULAR HGB CONC 29.1 g/dl (31.0-37.0); MEAN PLATELET VOLUME 9.3 fl (7.0-11.0); RBC 4.37 10^6/uL (3.5-6.1); RED CELL DISTRIBUTION WIDTH 19.1 % (11.5-14.5); WHITE BLOOD COUNT 6.4 10^3/uL (4.5-11.0)
[2018-08-28] MEDS: Insulin Lispro (humaLOG) LOW Coverage SC SCH ×4 (07:34→21:49)
[2018-08-28 08:04] LABS: ALBUMIN 3.7 g/dL (3.0-4.8); ALT/SGPT 13 U/L (7-56); AST/SGOT 22 U/L (14-36); BLOOD UREA NITROGEN 16 mg/dL (7-21); CALCIUM 8.9 mg/dL (8.4-10.5); GFR NON-AFRICAN AMERICAN > 60
--- NOTE | 2018-08-28 08:23 | CP.PCM.PN ---
Subjective - Date & Time of Evaluation Date of Evaluation: 08/28/18 Time of Evaluation: 06:40 - Subjective Subjective: Awake, alert, no distress Reason for consultation and follow up:Cardiac evaluation of chest pain, uncontrolled hypertension Seen and examined by me and Dr. Escobar Objective - Vital Signs/Intake and Output Vital Signs (last 24 hours): Temp Pulse Resp BP Pulse Ox 98 F 77 20 160/85 H 99 08/28/18 05:58 08/28/18 05:58 08/28/18 05:58 08/28/18 06:35 08/28/18 05:58 Intake and Output: 08/28/18 08/28/18 06:59 18:59 Intake Total 560 Balance 560 - Medications Medications: Current Medications Acetaminophen (Tylenol 325mg Tab) 650 mg PO Q6H PRN PRN Reason: Pain, moderate (4-7) Amlodipine Besylate (Norvasc) 10 mg PO DAILY [facility] Last Admin: 08/27/18 09:56 Dose: 10 mg Docusate Sodium (Colace) 100 mg PO DAILY [facility] Ferrous Sulfate (Feosol) 324 mg PO TID [facility] Last Admin: 08/27/18 18:31 Dose: 324 mg Heparin Sodium (Porcine) (Heparin) 5,000 units SC Q12 [facility]; Protocol Last Admin: 08/27/18 22:05 Dose: 5,000 units Hydralazine HCl (Apresoline) 10 mg PO Q6 PRN PRN Reason: Systolic Blood Pressure Last Admin: 08/28/18 05:41 Dose: 10 mg Ibuprofen (Motrin Tab) 400 mg PO Q6H PRN PRN Reason: Headache Last Admin: 08/26/18 22:03 Dose: 400 mg Insulin Human Lispro (Humalog Low) 0 units SC ACHS [facility]; Protocol Last Admin: 08/28/18 07:34 Dose: Not Given Lisinopril (Zestril) 10 mg PO DAILY [facility] Last Admin: 08/27/18 09:56 Dose: 10 mg Metoprolol Tartrate (Lopressor) 25 mg PO DAILY [facility] Last Admin: 08/27/18 09:56 Dose: 25 mg Pantoprazole Sodium (Protonix Ec Tab) 40 mg PO 0600 [facility] Last Admin: 08/28/18 05:41 Dose: 40 mg - Labs Labs: 08/28/18 07:10 08/28/18 07:10 PT 14.4 SECONDS (9.4-12.5) H 08/25/18 16:45 INR 1.30 08/25/18 16:45 APTT 27.8 Seconds (26.9-38.3) 08/25/18 16:45 - Constitutional Appears: Non-toxic, No Acute Distress - Head Exam Head Exam: NORMAL INSPECTION, NORMOCEPHALIC - Eye Exam Eye Exam: Normal appearance Pupil Exam: NORMAL ACCOMODATION - ENT Exam ENT Exam: Mucous Membranes Moist, Normal Exam - Respiratory Exam Respiratory Exam: Decreased Breath Sounds, Clear to Ausculation Bilateral, NORMAL BREATHING PATTERN - Cardiovascular Exam Cardiovascular Exam: REGULAR RHYTHM, +S1, +S2 Additional comments: telemetry NSR 70's - GI/Abdominal Exam GI & Abdominal Exam: Soft, Normal Bowel Sounds - Extremities Exam Extremities Exam: Full ROM, Normal Capillary Refill - Neurological Exam Neurological Exam: Alert, Awake, Oriented x3 - Psychiatric Exam Psychiatric exam: Normal Affect, Normal Mood - Skin Skin Exam: Dry, Normal Color, Warm Assessment and Plan - Assessment and Plan (Free Text) Assessment: A 48 year old morbidly obese female who came in to the ER due to intermitted chest pain with associated headache and weakness. History of diabetes, hypertension,cholecystectomy, migraine, .Current smoker 1 Pack per week for 2 almost 20 years. She claimed that she ran out of her antihypertensive medications 2 days ago. Blood pressure on admission was 188/115. [place] [facility] [place] [facility] [place] Troponin normal, EKG normal sinus rhythm with LV hypertrophy. Rule out acute coronary syndrome.Anemia. Will order stress test and echo. Plan: Denies chest pain, no distress Heart rate stable Blood pressure uncontrolled For Stress test today For Echo to evaluate LV function Continue current treatment Continue current medications TSH,lipid panel, Hgb A1C Lifestyle modifications Smoking cessation Weight reduction Will follow up Plan and treatment discussed with Dr. Escobar
[2018-08-28] MEDS ORDERED: Aminophylline 25 mg/ml Inj ONE (09:34)
--- NOTE | 2018-08-28 18:09 | CARD ---
APPROVED REPORT Date of service: 08/28/2018 EXAM: Two-dimensional and M-mode echocardiogram with Doppler and color Doppler. INDICATION LV Function:SystolicDiastolic Chest Pain 2D DIMENSIONS Left Atrium (2D)4.1 (1.6-4.0cm)IVSd1.7 (0.7-1.1cm) LVDd4.1 (3.9-5.9cm)PWd1.6 (0.7-1.1cm) LVDs2.7 (2.5-4.0cm)FS (%) 35.2 % LVEF (%)65.0 (>50%) M-Mode DIMENSIONS Aortic Root3.10 (2.2-3.7cm)Aortic Cusp Exc.2.10 (1.5-2.0cm) Aortic Valve AoV Peak Nipdsjlg415.0cm/Haresh Peak GR.10mmHg Mitral Valve E/A ratio0.0 TDI E/Lateral E'0.0E/Medial E'0.0 Tricuspid Valve TR Peak [id number]/sRAP [id number] Peak Gr.11mmHg [id number] LEFT VENTRICLE The left ventricle is normal size. There is mild to moderate concentric left ventricular hypertrophy. The left ventricular function is normal.EF-60-65% There is normal LV segmental wall motion. Transmitral Doppler flow pattern is Grade III-reversible restrictive diastolic dysfunction. No left ventricle thrombus noted on this study. There is no ventricular septal defect visualized. There is no left ventricular aneurysm. There is no mass noted in the left ventricle. RIGHT VENTRICLE The right ventricle is normal size. There is normal right ventricular wall thickness. The right ventricular systolic function is normal. ATRIA The left atrium is mildly dilated. The right atrium size is normal. The interatrial septum is intact with no evidence for an atrial septal defect. AORTIC VALVE The aortic valve is thickened but opens well. The aortic valve is mildly to moderately sclerotic. There is trace aortic regurgitation. There is no aortic valvular stenosis. There is no aortic valvular vegetation. MITRAL VALVE The mitral valve is thickened but opens well. Mitral annular calcification is mild. Mitral regurgitation is trace. There is no mitral valve stenosis. There is no evidence of mitral valve prolapse. TRICUSPID VALVE The tricuspid valve leaflets are thickened , but open well. There is trace tricuspid regurgitation.RVSP-21 mmof hg. There is no tricuspid valve stenosis. There is no tricuspid valve prolapse or vegetation. PULMONIC VALVE The pulmonary valve is normal in structure. There is trace pulmonic valvular regurgitation. There is no pulmonic valvular stenosis. GREAT VESSELS The aortic root is normal in size. The ascending aorta is normal in size. The pulmonary artery is normal. The IVC is normal in size and collapses >50% with inspiration. PERICARDIAL EFFUSION There is no pleural effusion. There is no pericardial effusion. <Conclusion> The left ventricle is normal size. There is mild to moderate concentric left ventricular hypertrophy. The left ventricular function is normal.EF-60-65% There is trace aortic regurgitation. Mitral regurgitation is trace. There is trace tricuspid regurgitation.RVSP-21 mmof hg. There is trace pulmonic valvular regurgitation. The IVC is normal in size and collapses >50% with inspiration. There is no pericardial effusion. No vegetation or thrombus noted.
--- NOTE | 2018-08-28 18:23 | CP.PCM.PN ---
<Brennan Lala - Last Filed: 08/28/18 18:13> Subjective - Date & Time of Evaluation Date of Evaluation: 08/28/18 Time of Evaluation: 18:13 - Subjective Subjective: INTERNAL MEDICINE PROGRESS NOTE FOR DR. JOHNNIE Lala PGY1 Pt seen and examined at bedside this am. No acute events overnight. Pt to undergo stress test today. She reports nausea, without vomiting. She otherwise denies 12 point ROS Objective - Vital Signs/Intake and Output Vital Signs (last 24 hours): Temp Pulse Resp BP Pulse Ox 98 F 87 20 148/74 99 08/28/18 05:58 08/28/18 16:00 08/28/18 05:58 08/28/18 16:00 08/28/18 16:00 Intake and Output: 08/28/18 08/28/18 06:59 18:59 Intake Total 560 Balance 560 - Medications Medications: Current Medications Acetaminophen (Tylenol 325mg Tab) 650 mg PO Q6H PRN PRN Reason: Pain, moderate (4-7) Amlodipine Besylate (Norvasc) 10 mg PO DAILY [facility] Last Admin: 08/28/18 12:15 Dose: 10 mg Clonidine HCl (Catapres) 0.1 mg PO TID PRN PRN Reason: Systolic Blood Pressure Docusate Sodium (Colace) 100 mg PO DAILY [facility] Last Admin: 08/28/18 12:15 Dose: 100 mg Ferrous Sulfate (Feosol) 324 mg PO TID [facility] Last Admin: 08/28/18 13:21 Dose: 324 mg Heparin Sodium (Porcine) (Heparin) 5,000 units SC Q12 [facility]; Protocol Last Admin: 08/28/18 12:15 Dose: 5,000 units Hydralazine HCl (Apresoline) 10 mg PO Q6 PRN PRN Reason: Systolic Blood Pressure Last Admin: 08/28/18 05:41 Dose: 10 mg Hydrochlorothiazide (Hydrodiuril) 25 mg PO DAILY [facility] Ibuprofen (Motrin Tab) 400 mg PO Q6H PRN PRN Reason: Headache Last Admin: 08/26/18 22:03 Dose: 400 mg Insulin Human Lispro (Humalog Low) 0 units SC ACHS [facility]; Protocol Last Admin: 08/28/18 16:59 Dose: Not Given Lisinopril (Zestril) 20 mg PO DAILY [facility] Metoprolol Tartrate (Lopressor) 25 mg PO BID [facility] Pantoprazole Sodium (Protonix Ec Tab) 40 mg PO 0600 [facility] Last Admin: 08/28/18 05:41 Dose: 40 mg - Labs Labs: 08/28/18 07:10 08/28/18 07:10 PT 14.4 SECONDS (9.4-12.5) H 08/25/18 16:45 INR 1.30 08/25/18 16:45 APTT 27.8 Seconds (26.9-38.3) 08/25/18 16:45 - Constitutional Appears: Well, Non-toxic, No Acute Distress - Eye Exam Eye Exam: EOMI, Normal appearance - ENT Exam ENT Exam: Normal Exam - Neck Exam Neck Exam: Normal Inspection - Respiratory Exam Respiratory Exam: Clear to Ausculation Bilateral, NORMAL BREATHING PATTERN - Cardiovascular Exam Cardiovascular Exam: REGULAR RHYTHM - GI/Abdominal Exam GI & Abdominal Exam: Soft, Normal Bowel Sounds - Extremities Exam Extremities Exam: Normal Inspection - Back Exam Back Exam: NORMAL INSPECTION - Neurological Exam Neurological Exam: Alert, Awake - Psychiatric Exam Psychiatric exam: Normal Affect, Normal Mood - Skin Skin Exam: Dry, Intact, Warm Assessment and Plan - Assessment and Plan (Free Text) Assessment: 48 year old female with past medical history significant for DM2 and hypertension that presented to the emergency room for intermittent chest pain, headache, and weakness. Plan: Chest pain Dyspnea Cardiology consulted, follow up recommendations Continue metoprolol Troponins < 0.01 Pt underwent echo/stress test today, f/u results Essential hypertension, uncontrolled Hypertensive urgency resolved. Head CT per radiologist showed no acute intracranial findings Increase lisinopril dose Increase metoprolol dose Start HCTZ Start clonidine continue amlodipine Symptomatic Anemia with shortness of breath and fatigue Also with iron deficiency Will start on oral iron s/p 1u pRBC Follow up repeat CBC Morbid obesity Counseled on diet and exercise DVT/GI PPx: Hep/protonix po Case seen, examined and discussed with attending physician, Dr. Johnnie Lala PGY1 <Xiao Amos - Last Filed: 08/29/18 17:26> Objective - Vital Signs/Intake and Output Vital Signs (last 24 hours): Temp Pulse Resp BP Pulse Ox 98.7 F 74 20 162/97 H 98 08/29/18 12:00 08/29/18 12:00 08/29/18 12:00 08/29/18 12:00 08/29/18 06:00 Intake and Output: 08/29/18 08/29/18 06:59 18:59 Intake Total 600 Output Total 2 Balance 598 - Medications Medications: Current Medications Acetaminophen (Tylenol 325mg Tab) 650 mg PO Q6H PRN PRN Reason: Pain, moderate (4-7) Acetaminophen (Tylenol 325mg Tab) 650 mg PO Q6H PRN PRN Reason: Pain, Mild (1-3) Amlodipine Besylate (Norvasc) 10 mg PO DAILY [facility] Last Admin: 08/29/18 11:05 Dose: 10 mg Docusate Sodium (Colace) 100 mg PO DAILY [facility] Last Admin: 08/29/18 11:05 Dose: 100 mg Ferrous Sulfate (Feosol) 324 mg PO TID [facility] Last Admin: 08/29/18 16:22 Dose: 324 mg Heparin Sodium (Porcine) (Heparin) 5,000 units SC Q12 [facility]; Protocol Last Admin: 08/29/18 11:05 Dose: 5,000 units Hydralazine HCl (Apresoline) 10 mg PO Q6 PRN PRN Reason: Systolic Blood Pressure Last Admin: 08/28/18 05:41 Dose: 10 mg Hydrochlorothiazide (Hydrodiuril) 25 mg PO DAILY [facility] Last Admin: 08/29/18 11:05 Dose: 25 mg Ibuprofen (Motrin Tab) 400 mg PO Q6H PRN PRN Reason: Headache Last Admin: 08/28/18 18:40 Dose: 400 mg Insulin Human Lispro (Humalog Low) 0 units SC ACHS [facility]; Protocol Last Admin: 08/29/18 17:15 Dose: Not Given Lisinopril (Zestril) 20 mg PO DAILY [facility] Last Admin: 08/29/18 11:04 Dose: 20 mg Metoprolol Tartrate (Lopressor) 25 mg PO BID [facility] Last Admin: 08/29/18 11:04 Dose: 25 mg Pantoprazole Sodium (Protonix Ec Tab) 40 mg PO 0600 [facility] Last Admin: 08/29/18 05:40 Dose: 40 mg - Labs Labs: 08/29/18 07:00 08/29/18 07:00 PT 14.4 SECONDS (9.4-12.5) H 08/25/18 16:45 INR 1.30 08/25/18 16:45 APTT 27.8 Seconds (26.9-38.3) 08/25/18 16:45 Attending/Attestation - Attestation I have personally seen and examined this patient.: Yes I have fully participated in the care of the patient.: Yes I have reviewed all pertinent clinical information, including history, physical exam and plan: Yes Notes (Text): 08/29/18 17:23 Attending note; Patient seen and examined with resident. Status post exercise stress test today. Patient with elevated blood pressure. Patient is a 48 year old female with past medical history significant for DM2 and hypertension that presented to the emergency room for intermittent chest pain, headache, and weakness. 1. Chest pain. Cardiac enzymes negative. Status post exercise stress test. Pending nuclear test. Cardiology evaluation appreciated. 2. Essential hypertension, uncontrolled. Hypertensive urgency resolved. Continue metoprolol, lisinopril, and Norvasc. Medication dosage increased .Head CT showed no acute intracranial findings. 3. Symptomatic Anemia with shortness of breath and fatigue. Status post 1 unit PRBC transfusion. IV iron given. Follow up repeat CBC. 4. Morbid obesity. Counseled on diet and exercise. Monitor blood pressure closely. Pending nuclear stress test. Upon discharge patient will be referred to [facility] clinic. Dietary education given. Medication compliance assisted in detail. Patient is advised to complete conchis Paperwork.
--- NOTE | 2018-08-28 23:49 | CARD ---
APPROVED REPORT Date of service: 08/28/2018 EKG Measurement Heart [id number] MD [id number] <Conclusion> Normal sinus rhythm Moderate voltage criteria T wave abnormality, consider lateral ischemia Prolonged QT Abnormal ECG
[2018-08-29 02:53] VITALS: O2SAT 98
[2018-08-29] MEDS: Pantoprazole 40 mg EC Tab PO SCH (05:40)
--- NOTE | 2018-08-29 06:38 | CP.PCM.PN ---
Subjective - Date & Time of Evaluation Date of Evaluation: 08/29/18 Time of Evaluation: 06:15 - Subjective Subjective: Awake, alert, no distress, denies chest pain Reason for consultation and follow up:Cardiac evaluation of chest pain, uncontrolled hypertension Seen and examined by me and Dr. Escobar Objective - Vital Signs/Intake and Output Vital Signs (last 24 hours): Temp Pulse Resp BP Pulse Ox 98.2 F 79 20 146/76 98 08/29/18 00:01 08/29/18 02:00 08/29/18 00:01 08/29/18 00:01 08/29/18 00:01 - Medications Medications: Current Medications Acetaminophen (Tylenol 325mg Tab) 650 mg PO Q6H PRN PRN Reason: Pain, moderate (4-7) Acetaminophen (Tylenol 325mg Tab) 650 mg PO Q6H PRN PRN Reason: Pain, Mild (1-3) Amlodipine Besylate (Norvasc) 10 mg PO DAILY [facility] Last Admin: 08/28/18 12:15 Dose: 10 mg Clonidine HCl (Catapres) 0.1 mg PO TID PRN PRN Reason: Systolic Blood Pressure Docusate Sodium (Colace) 100 mg PO DAILY [facility] Last Admin: 08/28/18 12:15 Dose: 100 mg Ferrous Sulfate (Feosol) 324 mg PO TID [facility] Last Admin: 08/28/18 18:40 Dose: 324 mg Heparin Sodium (Porcine) (Heparin) 5,000 units SC Q12 [facility]; Protocol Last Admin: 08/28/18 21:49 Dose: 5,000 units Hydralazine HCl (Apresoline) 10 mg PO Q6 PRN PRN Reason: Systolic Blood Pressure Last Admin: 08/28/18 05:41 Dose: 10 mg Hydrochlorothiazide (Hydrodiuril) 25 mg PO DAILY [facility] Ibuprofen (Motrin Tab) 400 mg PO Q6H PRN PRN Reason: Headache Last Admin: 08/28/18 18:40 Dose: 400 mg Insulin Human Lispro (Humalog Low) 0 units SC ACHS [facility]; Protocol Last Admin: 08/28/18 21:49 Dose: Not Given Lisinopril (Zestril) 20 mg PO DAILY [facility] Metoprolol Tartrate (Lopressor) 25 mg PO BID [facility] Last Admin: 08/28/18 18:38 Dose: Not Given Pantoprazole Sodium (Protonix Ec Tab) 40 mg PO 0600 [facility] Last Admin: 08/29/18 05:40 Dose: 40 mg - Labs Labs: 08/28/18 07:10 08/28/18 07:10 PT 14.4 SECONDS (9.4-12.5) H 08/25/18 16:45 INR 1.30 08/25/18 16:45 APTT 27.8 Seconds (26.9-38.3) 08/25/18 16:45 - Constitutional Appears: Non-toxic, No Acute Distress - Head Exam Head Exam: NORMAL INSPECTION, NORMOCEPHALIC - Eye Exam Eye Exam: Normal appearance Pupil Exam: NORMAL ACCOMODATION - Neck Exam Neck Exam: Full ROM, Normal Inspection - Respiratory Exam Respiratory Exam: Clear to Ausculation Bilateral, NORMAL BREATHING PATTERN - Cardiovascular Exam Cardiovascular Exam: REGULAR RHYTHM, +S1, +S2 Additional comments: Telemetry NSR 70's - GI/Abdominal Exam GI & Abdominal Exam: Soft, Normal Bowel Sounds - Extremities Exam Extremities Exam: Full ROM, Normal Capillary Refill - Neurological Exam Neurological Exam: Alert, Awake, Oriented x3 - Psychiatric Exam Psychiatric exam: Normal Affect, Normal Mood - Skin Skin Exam: Dry, Normal Color, Warm Assessment and Plan - Assessment and Plan (Free Text) Assessment: A 48 year old morbidly obese female who came in to the ER due to intermitted chest pain with associated headache and weakness. History of diabetes, hypert ension,cholecystectomy, migraine, .Current smoker 1 Pack per week for 2 almost 20 years. She claimed that she ran out of her antihypertensive medications 2 days ago. Blood pressure on admission was 188/115. No cardiac evaluation done at [facility]. Troponin normal, EKG normal sinus rhythm with LV hypertrophy. Rule out acute coronary syndrome.Iron deficiency anemia.post transfusion 1 unit PRBC for low H/H . Repeat H/H stable. Echo done. Going for second part of Stress test today. Controlled blood pressure now. Plan: Echo done- LVEF 60-65%, mild to moderate concentric LV hypertrophy, Trace AR/MR/TR/ PVR, RVSP 21 mmHg, no vegetation or thrombus Second part of stress test today H/H stable GI on consult Denies chest pain, no distress Heart rate stable Blood pressure controlled On Norvasc 10 mg daily, Catapres 0.1 mg TID PRN, Hydrodiuril 25 mg daily,Lopressor 25 mg BID, Lisinopril 20 mg daily Continue current treatment Continue current medications Lifestyle modifications Smoking cessation Weight reduction Will follow up Plan and treatment discussed with Dr. Escobar
[2018-08-29 07:31] LABS: BASO # 0.01 K/mm3 (0.0-2.0); BASO % 0.2 % (0.0-3.0); EOS # 0.2 (0.0-0.7); EOS % 2.9 % (1.5-5.0); HEMOGLOBIN 8.6 g/dL (12.0-16.0); LYMPH # 0.9 (1.2-3.4); LYMPH % 15.5 % (22.0-35.0); MEAN CELL VOLUME 68.2 fl (80.0-105.0); MEAN CORPUSCULAR HEMOGLOBIN 19.4 pg (25.0-35.0); MEAN CORPUSCULAR HGB CONC 28.4 g/dl (31.0-37.0); MEAN PLATELET VOLUME 9.2 fl (7.0-11.0); MONO # 0.4 (0.1-0.6); MONO % 7.3 % (1.0-6.0); RBC 4.44 10^6/uL (3.5-6.1); RED CELL DISTRIBUTION WIDTH 19.1 % (11.5-14.5); WHITE BLOOD COUNT 5.8 10^3/uL (4.5-11.0)
[2018-08-29 07:50] LABS: ALBUMIN 3.7 g/dL (3.0-4.8); ALT/SGPT 16 U/L (7-56); AST/SGOT 15 U/L (14-36); BLOOD UREA NITROGEN 17 mg/dL (7-21); CALCIUM 8.9 mg/dL (8.4-10.5); GFR NON-AFRICAN AMERICAN > 60; HDL CHOLESTEROL 38 mg/dL (29-60)
[2018-08-29 07:57] LABS: LDL CHOLESTEROL 63 mg/dL (0-129)
[2018-08-29] MEDS: Insulin Lispro (humaLOG) LOW Coverage SC SCH ×3 (08:29→17:15)
[2018-08-29 13:04] VITALS: RESP 20; TEMP 98.7
--- NOTE | 2018-08-29 15:51 | PCM.RRT ---
[employer] Nurse Assessment - Situation Date: 08/29/18 I.Reason for [employer] - A) Acute Change in Patient: (Select all that apply): Acute change in mental status - Neurological Status (Select all that apply): Alert, Responsive, Oriented, Verbal - Respiratory Oxygen Delivery Method: Face Mask @% - Constitutional Appears: In Acute Distress - Head Head Exam: NORMOCEPHALIC - Eyes Eye Exam: Normal appearance - Respiratory Exam Respiratory Exam: Respiratory Distress Additional comments: tachyneic - Cardiovascular Exam Cardiovascular Exam: REGULAR RHYTHM, +S1, +S2
[2018-08-29 17:37] VITALS: BP 164/99; PULSE 72
--- NOTE | 2018-08-29 21:58 | CP.PCM.DIS ---
<Brennan Lala - Last Filed: 08/29/18 21:51> Provider - Provider Date of Admission: 08/27/18 12:16 Attending physician: Xiao Amos MD Consults: 08/26/18 22:50 Cardiology Consult Routine Comment: Consulting Provider: Lisa Lyon Consulting Physician: Lisa Lyon Reason for Consult: cp rule out, but high risk pt Time Spent in preparation of Discharge (in minutes): 45 Diagnosis - Discharge Diagnosis (1) Hypertensive urgency Status: Resolved (2) Symptomatic anemia Status: Chronic (3) Chest pain Status: Resolved (4) Obesity Status: Chronic Hospital Course - Lab Results Lab Results: Most Recent Lab Values WBC 5.8 10^3/uL (4.5-11.0) 08/29/18 07:00 RBC 4.44 10^6/uL (3.5-6.1) 08/29/18 07:00 Hgb 8.6 g/dL (12.0-16.0) L 08/29/18 07:00 Hct 30.3 % (36.0-48.0) L 08/29/18 07:00 MCV 68.2 fl (80.0-105.0) L 08/29/18 07:00 MCH 19.4 pg (25.0-35.0) L 08/29/18 07:00 MCHC 28.4 g/dl (31.0-37.0) L 08/29/18 07:00 RDW 19.1 % (11.5-14.5) H 08/29/18 07:00 Plt Count 366 10^3/uL (120.0-450.0) 08/29/18 07:00 MPV 9.2 fl (7.0-11.0) 08/29/18 07:00 Neut % (Auto) 74.1 % (50.0-68.0) H 08/29/18 07:00 Lymph % (Auto) 15.5 % (22.0-35.0) L 08/29/18 07:00 Mower % (Auto) 7.3 % (1.0-6.0) H 08/29/18 07:00 Eos % (Auto) 2.9 % (1.5-5.0) 08/29/18 07:00 Baso % (Auto) 0.2 % (0.0-3.0) 08/29/18 07:00 Lymph # (Auto) 0.9 (1.2-3.4) L 08/29/18 07:00 Mower # (Auto) 0.4 (0.1-0.6) 08/29/18 07:00 Eos # (Auto) 0.2 (0.0-0.7) 08/29/18 07:00 Baso # (Auto) 0.01 K/mm3 (0.0-2.0) 08/29/18 07:00 Absolute Neuts (auto) 4.29 (1.4-6.5) 08/29/18 07:00 Retic Count 1.33 % (0.5-1.5) 08/25/18 22:29 PT 14.4 SECONDS (9.4-12.5) H 08/25/18 16:45 INR 1.30 08/25/18 16:45 APTT 27.8 Seconds (26.9-38.3) 08/25/18 16:45 Sodium 136 mmol/L (132-148) 08/29/18 07:00 Potassium 3.9 mmol/L (3.6-5.0) 08/29/18 07:00 Chloride 103 mmol/L (98-107) 08/29/18 07:00 Carbon Dioxide 26 mmol/L (21-33) 08/29/18 07:00 Anion Gap 11 (10-20) 08/29/18 07:00 BUN 17 mg/dL (7-21) 08/29/18 07:00 Creatinine 0.9 mg/dl (0.7-1.2) 08/29/18 07:00 Est GFR ( Amer) > 60 08/29/18 07:00 Est GFR (Non-Af Amer) > 60 08/29/18 07:00 POC Glucose (mg/dL) 129 mg/dL (65-110) H 08/29/18 16:41 Random Glucose 99 mg/dL (70-110) 08/29/18 07:00 Hemoglobin A1c 6.6 % (4.2-6.5) H 08/29/18 07:00 Calcium 8.9 mg/dL (8.4-10.5) 08/29/18 07:00 Phosphorus 3.5 mg/dL (2.5-4.5) 08/29/18 07:00 Magnesium 1.9 mg/dL (1.7-2.2) 08/29/18 07:00 Iron 17 ug/dL (45-180) L 08/25/18 22:29 TIBC 371 ug/dL (265-497) 08/25/18 22:29 % Saturation 5 % (20-55) L 08/25/18 22:29 Transferrin 293.42 mg/dL (206-381) 08/25/18 22:29 Ferritin 6.4 ng/mL 08/25/18 22:29 Total Bilirubin 0.3 mg/dL (0.2-1.3) 08/29/18 07:00 AST 15 U/L (14-36) 08/29/18 07:00 ALT 16 U/L (7-56) 08/29/18 07:00 Alkaline Phosphatase 69 U/L (38-126) 08/29/18 07:00 Troponin I 0.03 ng/mL D 08/28/18 16:50 Total Protein 7.4 g/dL (5.8-8.3) 08/29/18 07:00 Albumin 3.7 g/dL (3.0-4.8) 08/29/18 07:00 Globulin 3.7 gm/dL 08/29/18 07:00 Albumin/Globulin Ratio 1.0 (1.1-1.8) L 08/29/18 07:00 Triglycerides 94 mg/dL (35-160) 08/29/18 07:00 Cholesterol 127 mg/dL (130-200) L 08/29/18 07:00 LDL Cholesterol Direct 63 mg/dL (0-129) 08/29/18 07:00 HDL Cholesterol 38 mg/dL (29-60) 08/29/18 07:00 TSH 3rd Generation 5.03 mIU/mL (0.46-4.68) H 08/29/18 07:00 Blood Type B POSITIVE 08/27/18 12:25 Blood Type Confirm B POSITIVE 08/27/18 13:00 Antibody Screen Negative 08/27/18 12:25 Crossmatch See Detail 08/27/18 12:25 BBK History Checked No verified bt 08/27/18 12:25 - Hospital Course Hospital Course: Upon Admission: 48 y/o F with PMHx DM and HTN who presented to the ED for intermitted chest pain with associated headache and weakness. In the ED, Vitals: Temp 98.3, HR 96, RR 18, BP 188/115, SaO2 100%. Medical team was consulted for evaluation. Patient said that she ran out of her blood pressure medications about 2 days ago. Since then, she has been having some dull chest pain. She also endorsed migraine-like headache and some generalized weakness. She denies lightheadedness, dizziness, diaphoresis, fever, chills, n/v/d, numbness/tingling of the extremities. No sick contacts and no recent travel history. Patient said she had these symptoms when she was at rest and not related to exertion. Hospital Course: CXR: (-) Head CT: (-) Echo: LV normal size. LVEF 60-65%. Cardiology was consulted. Pt went for exercise stress test which was normal. Nuclear stress is pending. Pt was treated for hypertensive urgeny and started on new antihypertensives including amlodipine, HCTZ, lisinopril, metoprolol. Upon Discharge: Pt is feeling better. Vital signs are stable. Blood pressure has been controlled. F/u appointment scheduled at [facility]. Pt instructed on medication compliance, outpatient followup and to return to ED if symptoms return. Discharge Exam - Head Exam Head Exam: NORMAL INSPECTION, NORMOCEPHALIC - Eye Exam Eye Exam: EOMI, Normal appearance - ENT Exam ENT Exam: Mucous Membranes Moist, Normal Exam - Neck Exam Neck exam: Normal Inspection - Respiratory Exam Respiratory Exam: Clear to PA & Lateral, UNREMARKABLE - Cardiovascular Exam Cardiovascular Exam: REGULAR RHYTHM, +S1, +S2 - GI/Abdominal Exam GI & Abdominal Exam: Normal Bowel Sounds, Unremarkable - Extremities Exam Extremities exam: normal inspection - Back Exam Back exam: NORMAL INSPECTION - Neurological Exam Neurological exam: Alert, Oriented x3 - Psychiatric Exam Psychiatric exam: Normal Affect, Normal Mood - Skin Skin Exam: Dry, Intact, Warm Discharge Plan - Discharge Medications Prescriptions: amLODIPine [Norvasc] 10 mg PO DAILY #14 tab Ferrous Sulfate [Feosol] 324 mg PO TID #14 ect hydroCHLOROthiazide [Hydrodiuril] 25 mg PO DAILY #14 tab Lisinopril [Zestril] 20 mg PO DAILY #14 tab Metoprolol Tartrate [Lopressor] 25 mg PO BID #28 tab - Follow Up Plan Condition: FAIR Disposition: HOME/ ROUTINE Instructions: Obesity, Adult, Anemia Caused by Low Iron, Adult (DC), Obesity, Adult (DC), Chest Pain (DC), Chest Pain (GEN), Hypertension (DC), Hypertension (GEN) Additional Instructions: Please follow up with [facility] clinic. You have an appointment at the [facility] on, 09/01/18 at 2:30pm. Please arrive to your appointment 30 minutes early, with a photo ID and your insurance paperwork or ID card. Please follow up with your dude wrangler, Dr Escobar, within 3-5 days of discharge Please START the following medications: Amlodipine 10mg daily Hydrochlorothiazide 25mg daily Lisinopril 20mg daily Metoprolol Tartarate 25mg twice a day Ferrous Sulfate 324mg three times a day Please discuss all of these medications with your doctors Please stop smoking If your symptoms return, or you experience new symptoms please return to the nearest emergency room Referrals: Outpatient Clinic, [facility] [Other] (You will first need to establish [facility] with the hospital. Please do this as soon as possible. You must make an appointment for this clinic, they do NOT accept walk-ins Appointments Only [phone] Tuesday - Tuesday, 8:00 am - 4:00 pm) [facility] at [facility] [Outside] Lisa Escobar MD [Staff Provider] - <Xiao Amos - Last Filed: 08/31/18 18:48> Provider - Provider Date of Admission: 08/27/18 12:16 Attending physician: Xiao Amos MD Consults: 08/26/18 22:50 Cardiology Consult Routine Comment: Consulting Provider: Lisa Lyon Consulting Physician: Lias Lyon Reason for Consult: cp rule out, but high risk pt Hospital Course - Lab Results Lab Results: Most Recent Lab Values WBC 5.8 10^3/uL (4.5-11.0) 08/29/18 07:00 RBC 4.44 10^6/uL (3.5-6.1) 08/29/18 07:00 Hgb 8.6 g/dL (12.0-16.0) L 08/29/18 07:00 Hct 30.3 % (36.0-48.0) L 08/29/18 07:00 MCV 68.2 fl (80.0-105.0) L 08/29/18 07:00 MCH 19.4 pg (25.0-35.0) L 08/29/18 07:00 MCHC 28.4 g/dl (31.0-37.0) L 08/29/18 07:00 RDW 19.1 % (11.5-14.5) H 08/29/18 07:00 Plt Count 366 10^3/uL (120.0-450.0) 08/29/18 07:00 MPV 9.2 fl (7.0-11.0) 08/29/18 07:00 Neut % (Auto) 74.1 % (50.0-68.0) H 08/29/18 07:00 Lymph % (Auto) 15.5 % (22.0-35.0) L 08/29/18 07:00 Mower % (Auto) 7.3 % (1.0-6.0) H 08/29/18 07:00 Eos % (Auto) 2.9 % (1.5-5.0) 08/29/18 07:00 Baso % (Auto) 0.2 % (0.0-3.0) 08/29/18 07:00 Lymph # (Auto) 0.9 (1.2-3.4) L 08/29/18 07:00 Mower # (Auto) 0.4 (0.1-0.6) 08/29/18 07:00 Eos # (Auto) 0.2 (0.0-0.7) 08/29/18 07:00 Baso # (Auto) 0.01 K/mm3 (0.0-2.0) 08/29/18 07:00 Absolute Neuts (auto) 4.29 (1.4-6.5) 08/29/18 07:00 Retic Count 1.33 % (0.5-1.5) 08/25/18 22:29 PT 14.4 SECONDS (9.4-12.5) H 08/25/18 16:45 INR 1.30 08/25/18 16:45 APTT 27.8 Seconds (26.9-38.3) 08/25/18 16:45 Sodium 136 mmol/L (132-148) 08/29/18 07:00 Potassium 3.9 mmol/L (3.6-5.0) 08/29/18 07:00 Chloride 103 mmol/L (98-107) 08/29/18 07:00 Carbon Dioxide 26 mmol/L (21-33) 08/29/18 07:00 Anion Gap 11 (10-20) 08/29/18 07:00 BUN 17 mg/dL (7-21) 08/29/18 07:00 Creatinine 0.9 mg/dl (0.7-1.2) 08/29/18 07:00 Est GFR ( Amer) > 60 08/29/18 07:00 Est GFR (Non-Af Amer) > 60 08/29/18 07:00 POC Glucose (mg/dL) 129 mg/dL (65-110) H 08/29/18 16:41 Random Glucose 99 mg/dL (70-110) 08/29/18 07:00 Hemoglobin A1c 6.6 % (4.2-6.5) H 08/29/18 07:00 Calcium 8.9 mg/dL (8.4-10.5) 08/29/18 07:00 Phosphorus 3.5 mg/dL (2.5-4.5) 08/29/18 07:00 Magnesium 1.9 mg/dL (1.7-2.2) 08/29/18 07:00 Iron 17 ug/dL (45-180) L 08/25/18 22:29 TIBC 371 ug/dL (265-497) 08/25/18 22:29 % Saturation 5 % (20-55) L 08/25/18 22:29 Transferrin 293.42 mg/dL (206-381) 08/25/18 22:29 Ferritin 6.4 ng/mL 08/25/18 22:29 Total Bilirubin 0.3 mg/dL (0.2-1.3) 08/29/18 07:00 AST 15 U/L (14-36) 08/29/18 07:00 ALT 16 U/L (7-56) 08/29/18 07:00 Alkaline Phosphatase 69 U/L (38-126) 08/29/18 07:00 Troponin I 0.03 ng/mL D 08/28/18 16:50 Total Protein 7.4 g/dL (5.8-8.3) 08/29/18 07:00 Albumin 3.7 g/dL (3.0-4.8) 08/29/18 07:00 Globulin 3.7 gm/dL 08/29/18 07:00 Albumin/Globulin Ratio 1.0 (1.1-1.8) L 08/29/18 07:00 Triglycerides 94 mg/dL (35-160) 08/29/18 07:00 Cholesterol 127 mg/dL (130-200) L 08/29/18 07:00 LDL Cholesterol Direct 63 mg/dL (0-129) 08/29/18 07:00 HDL Cholesterol 38 mg/dL (29-60) 08/29/18 07:00 TSH 3rd Generation 5.03 mIU/mL (0.46-4.68) H 08/29/18 07:00 Blood Type B POSITIVE 08/27/18 12:25 Blood Type Confirm B POSITIVE 08/27/18 13:00 Antibody Screen Negative 08/27/18 12:25 Crossmatch See Detail 08/27/18 12:25 BBK History Checked No verified bt 08/27/18 12:25 Attending/Attestation - Attestation I have personally seen and examined this patient.: Yes I have fully participated in the care of the patient.: Yes I have reviewed all pertinent clinical information, including history, physical exam and plan: Yes Notes (Text): 08/31/18 18:47 Attending note; Patient seen and examined with resident. Status post exercise stress test. Patient is a 48 year old female with past medical history significant for DM2 and hypertension that presented to the emergency room for intermittent chest pain, headache, and weakness. 1. Chest pain. resolved. Cardiac enzymes negative. Status post exercise stress test which is normal. Pending nuclear test. Cardiology evaluation appreciated. 2. Essential hypertension, uncontrolled. Hypertensive urgency resolved. Continue metoprolol, lisinopril, and Norvasc. Medication dosage increased .Head CT showed no acute intracranial findings. 3. Symptomatic Anemia with shortness of breath and fatigue. Status post 1 unit PRBC transfusion. IV iron given. Follow up repeat CBC. 4. Morbid obesity. Counseled on diet and exercise. Weight reduction would help with reducing blood pressure medications. Upon discharge patient will be referred to [facility] clinic. Dietary education given. Medication compliance assisted in detail. Patient is advised to complete Rapid Pathogen Screening Paperwork. Addendum; Nuclear stress test is normal. Reviewed with dude wrangler. Monitor blood pressure closely as outpatient and adjust medication.
--- NOTE | 2018-08-29 22:01 | CARD ---
APPROVED REPORT Date of service: 08/28/2018 Protocol: LEXISCAN Test Type: Lexiscan Sestamibi Stress Test Attending Physician: Dr. Lisa Lyon Referring Physician: Dr. Qamar Perales Test Indications: Chest Pain Height:5 ft 10 in Weight:374lbs Medications: Tylenol,Norvasc, Colace, Feosol Heparin, Apresoline, Motrin, Humalog Ins Zestril,Lopressor, Protonix Medical History: 48 year old female with a history of diabetes, HTN Target HR: 173 bpm Resting ECG: RSR. Resting Heart Rate: 81 bpm Resting Blood Pressure: 160/100mmHg Submaximum (85%): 147 bpm PROCEDURE Pharmacologic stress testing was performed using 0.4mg per 5ml of regadenoson given intravenously over 7-10 seconds. Reversal agent aminophyline 100 mg, given intravenously for Dizziness. POST EXERCISE Reason for Termination: Protocol completed Target HR: No Max HR: 93 bpm 66% of Maximum Predicted HR: 173 bpm Exercise duration: 05:08 min:sec, 0 Stage Exercise capacity: 1.0METs Max Blood Pressure: 170/106mmHg Blood Pressure response to exercise: resting hypertension - appropriate response Heart Rate response to exercise: appropriate Chest Pain: No, none Angina index: 0 Arrhythmia: No, none ST Change: No, none Deviation: 0 mm TEST SUMMARY [id number]/100.0. INFUSIONDOSE 101:000.00.01.0114/.0. INFUSIONDOSE 201:000.00.01.0103/.0. INFUSIONDOSE 301:[id number]/106.0. INFUSIONDOSE 401:[id number]/106.0. INFUSIONDOSE 501:000.00.01.097/.0. INFUSIONDOSE 600:080.00.01.093/.0. INTERPRETATION Stress EKG Conclusion: IV LEXISCAN NUCLEAR STRESS TEST NEGATIVE FOR CHEST PAIN AND NEGATIVE FOR ST-T CHANGES, NUCLEAR SCAN REPORT PENDING. Signed by Lisa Lyon Electronically Approved: 08/28/2018 10:21:28 EXAM: Myocardial Perfusion STRESS/REST 2DAYS Stress Test Type: Pharmacologic Imaging Protocol The imaging protocol used to acquire images was Stress Tc-99m/rest Tc-99m 2 day Rest Spect myocardial perfusion imaging was performed in supine position 65 minutes following the injection of 30.2 mCi of Tc-99 Myoview. At peak stress, the patient was injected intravenously with 30.9mCi of Tc-99 tetrofosmin after an infusion time of 0 minutes and 10 seconds. Gated Stress Spect was performed 75 minutes after intravenous Tc-99 Myoview injection. The images were gated to evaluate regional wall motion and calculate ventricular ejection fraction.Images were reconstructed using backfilter projection method in short horizontal and verticle long axis. Spect slices were generated. LV Perfusion The quality of the study is good. The left ventricle is within normal limits in size. The right ventricle is unremarkable. The lung uptake is normal. The distribution of tracer reveals mildly to moderately decreased perfusion involving mid to basal anterolateral wall on the stress study. The remainder of the LV myocardium is unremarkable. The rest myocardial perfusion study shows no significant change. Wall Motion Wall motion study shows good contractility of the left ventricle. LVEF = 68%. Conclusion 1. Essentially normal SPECT myocardial perfusion study. 2. Fixed, anterolateral defect is most likely due to breast attenuation. 3. Normal gated wall motion of the left ventricle.
== END 2018-08-29 18:30 | disposition home or self-care (01) | DRG 134 ==
LOC: ED 15:21 → ERH 20:45 → 2RSO 08-26 02:30 → OBSVTOIN 08-27 12:16 → 2RNO 08-28 11:43
PROVIDERS: ADMIT Internal Medicine; ATTEND Internal Medicine
PROC: 30233N1 Transfusion of Nonautologous Red Blood Cells into Peripheral Vein, Percutaneous Approach (ICD-10-PCS; principal; 2018-08-27)
DX: I16.0 Hypertensive urgency (principal); Z91.19 Patient's noncompliance with other medical treatment and regimen; I11.9 Hypertensive heart disease without heart failure; D50.9 Iron deficiency anemia, unspecified; E11.9 Type 2 diabetes mellitus without complications; E66.01 Morbid (severe) obesity due to excess calories; Z68.43 Body mass index [BMI] 50.0-59.9, adult; G43.909 Migraine, unspecified, not intractable, without status migrainosus; F17.210 Nicotine dependence, cigarettes, uncomplicated